=== PATIENT | male | born 1960 | race African-American/Black ===

== ENCOUNTER 2018-01-08 11:16 | Emergency (ER) | payer SELFPAY ==
[2018-01-08] MEDS ORDERED: DIPH/PERTUSS(ACELL)/TETANUS VAC/PF 0.5 ML SYR (>=10YO) IM ONE (11:41)
--- NOTE | 2018-01-08 11:42 | ER Document Report ---
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 He does have a laceration involving the ulnar aspect of the distal middle finger. There is a flap of tissue. There is no obvious bone exposure. Last tetanus shot is unknown. TRAVEL OUTSIDE OF THE [place] IN LAST 30 DAYS: No - Related Data Allergies/Adverse Reactions: No Known Allergies Allergy (Verified 01/08/18 11:16) Past Medical History - Social History Chew tobacco use (# tins/day): Yes Frequency of alcohol use: as couple beers every day Drug Abuse: None Renal/ Medical History: Denies: Hx Peritoneal Dialysis Physical Exam - Vital signs Vitals: Temp Pulse Resp BP Pulse Ox 98.1 F 66 16 172/89 H 100 01/08/18 11:25 01/08/18 11:25 01/08/18 11:25 01/08/18 11:25 01/08/18 11:25 Course - Vital Signs Vital signs: Temp Pulse Resp BP Pulse Ox 98.1 F 66 16 172/89 H 100 01/08/18 11:25 01/08/18 11:25 01/08/18 11:25 01/08/18 11:25 01/08/18 11:25 Doctor's Discharge - Discharge Referrals: LOCALMD,NO [Primary Care Provider] - Follow up as needed
--- NOTE | 2018-01-08 12:21 | RADIOLOGY REPORT (SQ) ---
EXAM DESCRIPTION: FINGER RIGHT COMPLETED DATE/TIME: 01/08/2018 12:13 pm REASON FOR STUDY: right middle finger lac distally COMPARISON: None. NUMBER OF VIEWS: Three views of the right hand and middle finger. LIMITATIONS: Limited by external bandage artifact. FINDINGS: Suspect significant open wound with small ossific fragments dorsally displaced off the uln ar aspect of the distal phalanx tuft. Minimal nondisplaced fracture along the base of the distal pha lanx ulnar aspect may also be present. OTHER: No other significant finding. IMPRESSION: Limited by external artifact. Suspect tiny open fractures as above. TECHNICAL DOCUMENTATION: JOB ID: [id number] Reading location - IP/workstation name: [email or web address]
[2018-01-08] MEDS ORDERED: LIDOCAINE 1% INJ-PF (10 MG/ML) 30 ML SDV INJ ONE (13:32)
[2018-01-08] MEDS ORDERED: CEPHALEXIN 500 MG CAPSULE PO ONE (13:33)
--- NOTE | 2018-01-08 13:56 | ER Document Report ---
HPI - HPI Pain Level: 1 Notes: Patient is a 57-year-old male who presents to the ED complaining of a finger injury and laceration by a saw prior to arrival. Patient states that he has a laceration to his third digit of his right hand distally. Pain does not radiate. Patient states that he still able to move his finger without difficulties otherwise. He denies any drug allergies. Patient is unsure of his last tetanus. No other concerns or complaints at this time. Denies any headache, fever, URI, sore throat, chest pain, palpitations, syncope, cough, shortness of breath, wheeze, dyspnea, abdominal pain, nausea/vomiting/diarrhea, urinary retention, dysuria, hematuria, numbness/tingling, muscle paralysis, or rash. - ROS Systems Reviewed and Negative: Yes All other systems reviewed and negative - DERM Skin Color: Normal Past Medical History - General Information source: Patient - Social History Smoking Status: Former Smoker Chew tobacco use (# tins/day): Yes Frequency of alcohol use: as couple beers every day Drug Abuse: None Family History: Reviewed & Not Pertinent Patient has suicidal ideation: No Patient has homicidal ideation: No Renal/ Medical History: Denies: Hx Peritoneal Dialysis Vertical Provider Document - CONSTITUTIONAL Agree With Documented VS: Yes Notes: PHYSICAL EXAMINATION: GENERAL: Well-appearing, well-nourished and in no acute distress. LUNGS: Breath sounds clear to auscultation bilaterally and equal. No wheezes rales or rhonchi. HEART: Regular rate and rhythm without murmurs, rubs, gallops. Musculoskeletal: Rt hand: FROM to passive/active. Strength 5+/5. N/V intact distal. + tenderness to palp of digit. Extremities: No cyanosis, clubbing, or edema b/l. Peripheral pulses 2+. Capillary refill less than 3 seconds. NEUROLOGICAL: Normal speech, normal gait. PSYCH: Normal mood, normal affect. SKIN: rt 3rd digit of hand: there is an irregular flap-like laceration approx 2.5cm to the distal 3rd lateral digit. - INFECTION CONTROL TRAVEL OUTSIDE OF THE [place] IN LAST 30 DAYS: No Course - Re-evaluation Re-evalutation: 01/08/18 14:55 Patient is an afebrile, well-hydrated, 57-year-old male who presents to the ED with an open fracture/laceration to the right third distal digit of the hand. Vitals are acceptable without any significant tachycardia, tachypnea, or hypoxia. PE is otherwise unremarkable for any neurovascular compromise or dislocation. See x-ray result. Wound was thoroughly irrigated and cleansed. Wound edges approximated appropriately utilizing 6 simple sutures. Splint was placed thereafter with the wound dressing. Wound instructions reviewed. Patient tolerated procedure well without any complications. Procedure was performed by Dahlia Dobson. Tetanus was given today as well as a first dose of Keflex. Prescription of Keflex given as well. Advised patient that he needs to call orthopedics today to schedule an appointment for further evaluation and management of the open fracture. Return to the ED with any worsening/concerning symptoms otherwise as reviewed in discharge. Patient is in agreement. - Vital Signs Vital signs: Temp Pulse Resp BP Pulse Ox 98.1 F 66 16 172/89 H 100 01/08/18 11:25 01/08/18 11:25 01/08/18 11:25 01/08/18 11:25 01/08/18 11:25 Procedures - Immobilization Right Finger 3rd digit Time completed: 14:50 Pre-Proc Neuro Vasc Exam: Normal Immobilizer type: Finger splint (Static) Performed by: PCT Post-Proc Neuro Vasc Exam: Normal, Unchanged from pre-exam - Laceration/Wound Repair Right Finger 3rd digit Time completed: 14:45 - Procedure performed by Dahlia MAKI under supervision Wound length (cm): 2.5 Wound's Depth, Shape: Irregular, Flap Laceration pre-procedure: Sterile PPE donned, Sterile drapes applied, Other - chlorhexadine Anesthetic type: 1% Lidocaine Volume Anesthetic (mLs): 8 Wound explored: Clean, No foreign body removed Irrigated w/ Saline (mLs): 120 Wound Debrided: Minimal Wound Repaired With: Sutures Suture Size/Type: 4:0, Nylon Number of Sutures: 6 Layer Closure?: No Post-procedure wound care: Sterile dressing applied, Splint applied Post-procedure NV exam normal: Yes Complications: No Discharge - Discharge Clinical Impression: Finger laceration Qualifiers: Encounter type: initial encounter Finger: middle finger Damage to nail status: without damage Foreign body presence: without foreign body Laterality: right Qualified Code(s): S61.212A - Laceration without foreign body of right middle finger without damage to nail, initial encounter Fracture, finger, distal phalanx, open Qualifiers: Encounter type: initial encounter Finger: middle finger Fracture alignment: nondisplaced Laterality: right Qualified Code(s): S62.662B - Nondisplaced fracture of distal phalanx of right middle finger, initial encounter for open fracture Condition: Stable Disposition: HOME, SELF-CARE Instructions: Antibiotic Ointment Protection ([facility]), Laceration Care ([facility]), Prophylactic Antibiotic ([facility]), Soap Cleansing ([facility]), Tetanus Immunization Given ([facility]) Additional Instructions: Do not shower or bathe for 24 hours. After 24 hours you may shower but no submersion of the wound under water. Keep the original dressing on the wound for 24 hours unless the drainage soaks through. Change the dressing daily thereafter and keep the knots of the suture material clean from any dried discharge. You may leave the wound open to the air once there is no more discharge. *Call Orthopedics today to schedule an appointment for further evaluation and management. See your PCM in 2-3 days for a recheck. Monitor for any signs of worsening pain or redness, purulent drainage, streaks, and/or fever. Return to the ED if noticing any of the above symptoms or as needed. Take medications as directed. Your sutures will need to be removed according to direction by Orthopedics. Prescriptions: Cephalexin Monohydrate [Keflex 500 mg Capsule] 500 mg PO TID #30 capsule Forms: Elevated Blood Pressure Referrals: LOCAL,NO [NO LOCAL MD] - Follow up as needed [facility] [Provider Group] - 01/10/18
[2018-01-08 15:42] VITALS: BP 189/100
== END 2018-01-08 15:43 | disposition home or self-care (01) ==
LOC: ER 11:16
PROC: 0HQFXZZ Repair Right Hand Skin, External Approach (ICD-10-PCS; principal; 2018-01-08)
DX: S61.212A Laceration without foreign body of right middle finger without damage to nail, initial encounter (principal); S62.662B Nondisplaced fracture of distal phalanx of right middle finger, initial encounter for open fracture; W29.8XXA Contact with other powered hand tools and household machinery, initial encounter; Z23 Encounter for immunization
CPT/HCPCS: 90715; 99283